=== PATIENT | male | born 1975 | race Caucasian/White ===

== ENCOUNTER 2017-04-23 13:46 | Outpatient (CLI) | payer OTHER ==
--- NOTE | 2017-04-23 16:46 | RAD ---
TWO VIEW RIGHT KNEE SERIES 04/23/17 INDICATION: Disability evaluation. FINDINGS: There is no fracture or dislocation. No significant arthropathy. No evidence of joint capsular diste ntion. IMPRESSION: No acute osseous abnormalities of the right knee. POS: [facility]
--- NOTE | 2017-04-23 16:50 | RAD ---
THREE VIEWS OF THE LUMBAR SPINE 04/23/17 INDICATION: Disability evaluation. FINDINGS: There are five lumbar type vertebrae. Vertebral body heights and disc spaces are preserved. SI joint s are normal appearing. IMPRESSION: Radiographically normal lumbar spine. POS: [facility]
== END 2017-04-23 13:47 | disposition home or self-care (01) ==
LOC: NAV RAD 13:46
PROVIDERS: ATTEND Family Medicine
DX: Z02.71 Encounter for disability determination (principal)
CPT/HCPCS: 72100